=== PATIENT | male | born 1990 | race Caucasian/White ===

== ENCOUNTER 2023-01-06 15:28 | Emergency (ER) | payer OTHER, SELFPAY ==
[2023-01-06 15:36] VITALS: BP 148/76; PULSE 106; RESP 20; TEMP 36.9; O2SAT 100
--- NOTE | 2023-01-06 15:44 | ED.SKABFB ---
HPI - Skin/Abscess/Foreign Bdy General Chief complaint: Skin/Abscess/Foreign Body Stated complaint: Middle finger right hand History of Present Illness HPI narrative: Patient presents with tenderness and swelling to the right fingernail of his right middle finger on his right hand. No drainage no streaking. Patient states he bites his nails and noticed some tenderness and increased swelling to the finger now. Related Data Allergies Allergy/AdvReac Type Severity Reaction Status Date / Time No Known Allergies Allergy Verified 01/06/23 15:37 Review of Systems Review of Systems: CONSTITUTIONAL: Denies fever, chills, or sweats. EYES: Denies visual changes, redness, or discharge. ENT: Denies rhinorrhea, congestion, sore throat, or otalgia. CARDIOVASCULAR: Denies chest pain, palpitations, or edema. RESPIRATORY: Denies cough or dyspnea. GASTROINTESTINAL: Denies abdominal pain, nausea, vomiting, or diarrhea. GENITOURINARY: Denies dysuria or hematuria. SKIN: Denies rash or itching. MUSCULOSKELETAL: Denies back pain, joint pain, or myalgia. NEUROLOGIC: Denies headache, numbness, or weakness. PSYCHIATRIC: Denies anxiety or depression. PMFSH Comments At time of signature, agree with nursing past medical, surgical, social and family history. There is no relevant family history pertinent to the presenting complaint Exam Narrative: GENERAL: Well-appearing, well-nourished, and in no acute distress. HEAD: Normocephalic, atraumatic. EYES: PERRLA and EOMI. ENT: Nares clear, no rhinorrhea or epistaxis. Mucous membranes moist. NECK: Supple. CHEST: Clear to auscultation. No respiratory distress. HEART: Regular rate and rhythm. No murmur heard. Normal peripheral pulses. ABDOMEN: Soft, nontender, nondistended, normal active bowel sounds. EXTREMITIES: Normal range of motion. No edema. Middle finger right hand paronychia SWELLING AND REDNESS AND FLUCTUANCE CONSISTENT WITH PARONYCHIA. NORMAL CAP REFILL. NORMAL SENSATION OF DISTAL FINGER. NORMAL 2 POINT DISCRIMINATION. NORMAL MOVEMENT OF FINGER AT PIP, DIP, MCP. NORMAL HAND EXAM. NO STREAKING OR REDNESS INTO HAND. SKIN: Warm, dry, no rash. NEURO: No focal deficits. Alert and oriented x3. [place] Coma Scale Eye Opening: Spontaneous 4 Sofya Coma Scale Motor: Obeys Commands 6 [place] Coma Scale Verbal: Oriented 5 [place] Coma Scale Total 15 Course Course Level of Care: Express Care Visit Vital Signs Vital signs: Vital Signs Temperature 36.9 C 01/06/23 15:36 Pulse Rate 106 H 01/06/23 15:36 Respiratory Rate 20 01/06/23 15:36 Blood Pressure 148/76 H 01/06/23 15:36 Pulse Oximetry 100 01/06/23 15:36 Oxygen Delivery Room Air 01/06/23 15:36 Temperature 36.9 C 01/06/23 15:36 Pulse Rate 106 H 01/06/23 15:36 Respiratory Rate 20 01/06/23 15:36 Blood Pressure 148/76 H 01/06/23 15:36 Pulse Oximetry 100 01/06/23 15:36 Oxygen Delivery Room Air 01/06/23 15:36 Please LIZ schedule a followup visit with your personal physician for further evaluation and treatment. Including recheck and discussion of your blood pressure. If your symptoms persist, change or worsen significantly before you can contact your personal physician then please, without delay, go to the emergency department for further evaluation HIP EXAM - SKIN INTACT. NO BRUISING, REDNESS OR SWELLING. NO INGUINAL MASSES OR LYMPHADENOPATHY. NO INGUINAL TENDERNESS, ANTERIOR OR LATERAL HIP TENDERNESS. NO BUTTOCK OR SI JOINT TENDERNESS. HAS NORMAL FLEXION, EXTENSION, AND ROTATION OF HIP BACK EXAM - NO VERTEBRAL POINT SPECIFIC TENDERNESS OR STEP OFFS. NORMAL ROM OF BACK. NORMAL FLEXION AND EXTENSION OF BACK. NO CVA TENDERNESS. LEG EXAM - NO CALF OR ANKLE SWELLING, DISCOLORATION. NORMAL FOOT SENSATION AND CAP REFILL. NORMAL DP PULSE. Discharge Plan Discharge Clinical Impression: Paronychia Patient Disposition: Home, Self-Care Condition: Stable Instructions: Antibiotic Form, Paronychia
== END 2023-01-06 16:04 | disposition home or self-care (01) ==
PROVIDERS: Emergency Provider Nurse Practitioner Family
DX: L03.011 Cellulitis of right finger (principal)
CPT/HCPCS: 99213; G0463

== ENCOUNTER 2024-03-03 10:53 | Emergency (ER) | payer OTHER, SELFPAY ==
--- NOTE | ~2024-03-03 | XR_ITS ---
XR knee RT 3V Ordering provider: Rimma Desai APRN History: . pain, swelling, unable to fully straighten Rt knee, no inj . Comparison: None. FINDINGS: BONES: No acute fracture or dislocation. JOINT SPACES: Normal. SOFT TISSUES: Normal. IMPRESSION: No acute osseous abnormality right knee. Reviewed, dictated and finalized at location A. RETE PLACEMENT EQUIPMENT OPERATOR
[2024-03-03 11:11] VITALS: BP 141/87; PULSE 88; RESP 16; TEMP 36.2; O2SAT 100
--- NOTE | 2024-03-03 11:25 | ED_ITS ---
HPI - Extremity Injury (Lower) General Chief Complaint: Extremity Injury, Lower Stated Complaint: right knee pain Source: patient Mode of arrival: ambulatory Limitations: no limitations History of Present Illness HPI Narrative: 34 y/o male presented for c/o right inner knee pain. Onset yesterday. States he also felt pain last week which lasted 2 days but improved. Denies known injury. States yesterday he simply pivoted while standing. Endorses painful range of motion, unable to tolerate straightening the knee. Rates pain 3/10 at rest but 10/10 when attempting to straighten or bear weight. Taking ibuprofen. Using crutches from home. Related Data Allergies Allergy/AdvReac Type Severity Reaction Status Date / Time No Known Allergies Allergy Verified 03/03/24 11:19 Review of Systems Review of Systems: CONSTITUTIONAL: Denies body aches, fever, chills EYES: Denies visual changes ENT: Denies rhinorrhea, congestion CARDIOVASCULAR: Denies chest pain, palpitations, or edema. RESPIRATORY: Denies cough or dyspnea. SKIN: Denies rash, itching, or wounds. MUSCULOSKELETAL: per HPI NEUROLOGIC: Denies headache, numbness, tingling, or weakness. All systems reviewed & are unremarkable except as noted in HPI and below PMFSH Comments At time of signature, I have reviewed and agree with nursing past medical, surgical, social and family history unless otherwise noted. Please see nursing chart for further information. There is no relevant family history pertinent to the presenting complaint Exam Narrative: GENERAL: Well-appearing CHEST: Speaks in full sentences. No respiratory distress. HEART: Regular rate and rhythm. Normal and equal peripheral pulses. EXTREMITIES: Right knee with decreased/painful range of motion, unable to tolerate extension or weight bearing. Anterior/medial aspect with mild swelling, Tender with palpation of patella. No ecchymosis or warmth, No open wounds, or obvious deformity; alignment normal, pulse palpable and equal bilaterally, skin warm, dry, pink. Capillary refill less than 3 seconds. Using crutches. SKIN: Warm, dry NEURO: Alert and oriented x3. PSYCH: Normal mood and affect Course Course Emergency Course: Patient is aware of diagnosis, understands and agrees to treatment plan. Anticipatory guidance given. Patient agrees to follow-up as directed and is aware of reasons to seek care at the emergency department. Portions of this record may have been created with voice recognition software Level of Care: Express Care Visit Vital Signs Vital signs: Vital Signs Temperature 97.1 F L 03/03/24 11:11 Pulse Rate 88 03/03/24 11:11 Respiratory Rate 16 03/03/24 11:11 Blood Pressure 141/87 H 03/03/24 11:11 Pulse Oximetry 100 03/03/24 11:11 Temperature 97.1 F L 03/03/24 11:11 Pulse Rate 88 03/03/24 11:11 Respiratory Rate 16 03/03/24 11:11 Blood Pressure 141/87 H 03/03/24 11:11 Pulse Oximetry 100 03/03/24 11:11 Oxygen Delivery Room Air 03/03/24 11:14 Reviewed MDM - Extremity Injury (Lower) MDM Narrative Medical decision making narrative: Discussed physical exam findings and x-ray. Discussed the purchase of knee immobilizer. Patient has crutches. Advised supportive measures and signs/symptoms to go to the ER. Pt is appropriate for outpt treatment and f/u with ortho. Differential Diagnosis Differential diagnosis: Likely other (osteoarthritis, patella dislocation, patellar tendonitis, tendon rupture, gout, bakers cyst, septic bursitis, dvt, ti bial plateau fracture) Imaging Data Radiologist's impression: Patient: Deuce Mathews : 1990 MR#: [id number] Age: 34 Acct:[id number] Loc: [id number] ADM Date: 03/03/24Attending Dr: Ordering Physician: Rimma Desai APRN Date of Service: 03/03/24 Procedure(s): XR knee RT 3V Accession Number(s): [id number] cc: Rimma Desai APRN; HEADING AND PRIMING OPERATOR PHYSICIAN~ XR knee RT 3V Ordering provider: Rimma Desai APRN History: . pain, swelling, unable to fully straighten Rt knee, no inj . Comparison: None. FINDINGS: BONES: No acute fracture or dislocation. JOINT SPACES: Normal. SOFT TISSUES: Normal. IMPRESSION: No acute osseous abnormality right knee. Discharge Plan Discharge Clinical Impression: Acute pain of right knee Patient Disposition: Home, Self-Care Condition: Stable Instructions: Knee Sprain (ED), Knee Pain (ED) Additional Instructions: Rest. Avoid running, jumping, or excessive walking or anything that worsens the symptoms Elevate the right leg Wear an Louie wrap during the day for compression to reduce swelling Tylenol 1000mg every 8 hours as needed. You can alternate with ibuprofen 800mg Alternate ice/heat to the site. Lidocaine or salon pas pain patch or use pain cream like icy/hot or biofreeze. Establish and Follow up with a primary care provider and solar energy sales specialist in 1 week. Call to schedule an appointment Go to the ER for worsening symptoms or concerns Prescriptions: New ibuprofen 800 mg tablet 800 mg PO TID PRN (Reason: pain) Qty: 15 0RF Follow-up/Referrals: David Manning MD [Physician] - PHYSICIAN,HEADING AND PRIMING OPERATOR [Primary Care Provider] - Stand Alone Forms: Work/School Release IP Time of Disposition: 12:11
--- NOTE | 2024-03-03 12:29 | PC.NURSE ---
+PMS POST KNEE IMMOBILIZER APPLICATION
== END 2024-03-03 12:16 | disposition home or self-care (01) ==
PROVIDERS: Emergency Provider Nurse Practitioner Family
DX: M25.561 Pain in right knee (principal)
CPT/HCPCS: 73562; 99213; G0463; L1830

== ENCOUNTER 2024-03-24 07:50 | Outpatient (CLI) | payer OTHER, SELFPAY ==
--- NOTE | ~2024-03-24 | MR_ITS ---
MRI of the right knee Clinical history: Medial meniscus tear Technique: Coronal proton density and proton density-weighted images, sagittal proton-density and T2 fat-sat images, and axial proton-density fat-saturated images were acquired. Findings: There is acute, high-grade, probable complete tear of the midportion of the ACL. Posterior cruciate ligament is intact. Medial collateral ligament and the lateral collateral ligament complex a re intact. Popliteus tendon is intact. Medial and lateral menisci are intact, without evidence of tear. There are transchondral impaction injuries at the central aspect lateral femoral condyle and posterol ateral tibial plateau, compatible recent pivot shift injury. Articular cartilage otherwise is well pr eserved throughout the knee. Extensor mechanism is intact. Small to moderate joint effusion present. There is minimal Thomas's cyst . Impression: Acute, high-grade, probable complete ACL tear, as above. Transchondral impaction injuries at the central aspect of the lateral femoral condyle and posterolate ral tibial plateau, consistent with sequelae recent pivot shift injury. No meniscal tear seen. Small to moderate joint effusion and minimal Thomas's cyst. Reviewed, dictated and finalized at [facility]. ISH LINGUIST Impression: Acute, high-grade, probable complete ACL tear, as above. Transchondral impaction injuries at the central aspect of the lateral femoral c ondyle and posterolateral tibial plateau, consistent with sequelae recent pivot shift injury. No meniscal tear seen. Small to moderate joint effusion and minimal Thomas's cyst.
== END 2024-03-24 07:51 | disposition home or self-care (01) ==
LOC: MICIMG 07:50
PROVIDERS: PCP Orthopaedic Surgery; Visit Provider Orthopaedic Surgery
DX: S83.241A Other tear of medial meniscus, current injury, right knee, initial encounter (principal); X58.XXXA Exposure to other specified factors, initial encounter; M25.461 Effusion, right knee; M71.21 Synovial cyst of popliteal space [Baker], right knee
CPT/HCPCS: 73721